=== PATIENT | male | born 2000 | race African-American/Black ===

== ENCOUNTER 2020-10-08 13:26 | Emergency (ER) | payer OTHER, SELFPAY ==
[2020-10-08 13:41] VITALS: BP 146/83; PULSE 66; RESP 16; TEMP 37.1; O2SAT 99
--- NOTE | 2020-10-08 14:16 | ED.SKABFB ---
HPI - Skin/Abscess/Foreign Bdy General Chief complaint: Skin/Abscess/Foreign Body Stated complaint: Problem with scrodum History of Present Illness HPI narrative: This is a 20-year-old male comes in complaining of right-sided scrotal itching and burning and erythema states that it started approximately 3 days ago he states that the only thing he uses is some stuff called [employer] Related Data Allergies Allergy/AdvReac Type Severity Reaction Status Date / Time No Known Allergies Allergy Verified 10/08/20 13:58 Review of Systems Review of Systems: CONSTITUTIONAL: Denies fever, chills, or sweats. EYES: Denies visual changes, redness, or discharge. ENT: Denies rhinorrhea, congestion, sore throat, or otalgia. CARDIOVASCULAR:Denies chest pain, palpitations, or edema. RESPIRATORY: Denies cough or dyspnea. GASTROINTESTINAL: Denies abdominal pain, nausea, vomiting, or diarrhea. Scrotal pain GENITOURINARY: Denies dysuria or hematuria. SKIN:[Denies rash or itching. MUSCULOSKELETAL:Denies back pain, joint pain, or myalgia. NEUROLOGIC: Denies headache, numbness, or weakness. PSYCHIATRIC:Denies anxiety or depression PMFSH Comments At time as signature, I have reviewed and agree with nursing past medical, social, surgical and family history. Please see nursing chart for further information. There is no relevant family history pertinent to the presenting complaint. Exam Narrative: GENERAL:Well-appearing, well-nourished, and in no acute distress. HEAD:Normocephalic, atraumatic. EYES: PERRLA and EOMI. ENT: Nares clear, no rhinorrhea or epistaxis. Mucous membranes moist. NECK: Supple. CHEST: Clear to auscultation. No respiratory distress. HEART: Regular rate and rhythm. No murmur heard. Normal peripheral pulses. ABDOMEN: Soft, nontender, nondistended, normal active bowel sounds. EXTREMITIES: Normal range of motion. No edema. SKIN: Warm, dry, no rash. Erythema to the right side of the scrotum painful to palpitation skin like abrasion NEURO: No focal deficits. Alert and oriented x3. Course Vital Signs Vital signs: Vital Signs Temperature 98.8 F 10/08/20 13:41 Pulse Rate 66 10/08/20 13:41 Respiratory Rate 16 10/08/20 13:41 Blood Pressure 146/83 H 10/08/20 13:41 Pulse Oximetry 99 10/08/20 13:41 Temperature 98.8 F 10/08/20 13:41 Pulse Rate 66 10/08/20 13:41 Respiratory Rate 16 10/08/20 13:41 Blood Pressure 146/83 H 10/08/20 13:41 Pulse Oximetry 99 10/08/20 13:41 MDM - Skin/Abscess/Foreign Bdy Differential Diagnosis Differential diagnosis: Likely abscess of skin or subcutaneous tissue, dermatophytosis, herpes zoster, allergic reaction to drug, cellulitis and other (STD symptom) Discharge Plan Discharge Clinical Impression: Pain in scrotum, Dermatitis Patient Disposition: Home, Self-Care Condition: Stable Instructions: Antibiotic Form, Dermatitis (ED), Scrotal Pain (ED) Additional Instructions: Use skin creams/lotion, such as those containing calamine or pramoxine to reduce itchiness Avoid scratching when possible to prevent worsening of the condition and disruption of the skin that could lead to bacterial infection To relieve itching, place a cool washcloth or some ice over the area that itches, rather than scratching Return to the office or seek ER visit if condition is not improving or worsens with fever, swelling, difficulty breathing or swallowing. Do not use any new creams and or lotions you have Scrotal dermatitis Prescriptions: New cetirizine [Zyrtec] 10 mg tablet 10 mg PO DAILY PRN (Reason: allergy symptoms) Qty: 30 RF: 0 hydrocortisone 1 % ointment 1 applic topical BID Qty: 28.35 RF: 0 Follow-up/Referrals: PHYSICIAN,CASHIER HOST/HOSTESS [Primary Care Provider] - Time of Disposition: 14:38
== END 2020-10-08 14:40 | disposition home or self-care (01) ==
PROVIDERS: Emergency Provider Nurse Practitioner Family
DX: L30.9 Dermatitis, unspecified (principal); N50.82 Scrotal pain
CPT/HCPCS: 99203; G0463

== ENCOUNTER 2020-11-13 19:45 | Emergency (ER) | payer OTHER, SELFPAY ==
[2020-11-13 19:53] VITALS: BP 144/67; PULSE 64; RESP 16; TEMP 36.5; O2SAT 100
--- NOTE | 2020-11-13 20:02 | ED.SKABFB ---
HPI - Skin/Abscess/Foreign Bdy General Chief complaint: Wound/Laceration Stated complaint: insect bite Time Seen by Provider: 11/13/20 20:02 Source: patient and RN notes reviewed Mode of arrival: ambulatory Limitations: no limitations History of Present Illness HPI narrative: 20-year-old male presents with concern for possible spider bite to the left forearm. Reports has been there for several days. He denies any drainage from the area. Denies body aches, chills, sweats. Denies streaking from the site. Denies seeing any spider or insect that bit him. Denies intervention. MD complaint: insect bite/sting Related Data Allergies Allergy/AdvReac Type Severity Reaction Status Date / Time No Known Allergies Allergy Verified 10/08/20 13:58 Review of Systems Review of Systems: CONSTITUTIONAL: Denies malaise, chills, sweats, or fever. ENT: Denies swollen lips, swollen CARDIOVASCULAR: Denies chest pain, palpitations, or edema. RESPIRATORY: Denies cough or dyspnea. GENITOURINARY: Denies dysuria or hematuria. SKIN: Reports insect bite to the left forearm MUSCULOSKELETAL: Denies myalgia. All systems reviewed & are unremarkable except as noted in HPI and below PMFSH Comments At time of signature, agree with nursing past medical, surgical, social and family history. There is no relevant family history pertinent to the presenting complaint Exam Narrative: GENERAL: Well-appearing, well-nourished, and in no acute distress. HEAD: Normocephalic, atraumatic. EYES: PERRLA, conjunctivae clear ENT: Mucous membranes moist. Oropharynx without edema, erythema or lesions. NECK: Supple. No lymphadenopathy CHEST: Clear to auscultation. No respiratory distress. HEART: Regular rate and rhythm. SKIN: Warm, dry. 2 cm firm nodule without fluctuation, warmth, surrounding erythema or edema noted to the left forearm NEURO: Alert and oriented x3. PSYCH: Normal mood and affect Course Course Emergency Course: Patient is aware of diagnosis, understands and agrees to treatment plan. Anticipatory guidance given. Patient agrees to follow-up as directed and is aware of reasons to seek care at the emergency department. Portions of this record may have been created with voice recognition software Vital Signs Vital signs: Vital Signs Temperature 97.7 F 11/13/20 19:53 Pulse Rate 64 11/13/20 19:53 Respiratory Rate 16 11/13/20 19:53 Blood Pressure 144/67 H 11/13/20 19:53 Pulse Oximetry 100 11/13/20 19:53 Temperature 97.7 F 11/13/20 19:53 Pulse Rate 64 11/13/20 19:53 Respiratory Rate 16 11/13/20 19:53 Blood Pressure 144/67 H 11/13/20 19:53 Pulse Oximetry 100 11/13/20 19:53 Reviewed. MDM - Skin/Abscess/Foreign Bdy MDM Narrative Medical decision making narrative: Exam findings show no acute concerns or changes; patient is non-toxic appearing and is in no distress. Patient is appropriate for outpatient treatment and follow-up. Differential Diagnosis Differential diagnosis: Likely abscess of skin or subcutaneous tissue, cellulitis, insect bites and contact dermatitis Critical Care Time Critical Care Time Critical Care Time: No Discharge Plan Discharge Clinical Impression: Insect bite Qualifiers: Encounter type: initial encounter Site of insect bite: forearm Laterality: left Qualified Code(s): S50.862A - Insect bite (nonvenomous) of left forearm, initial encounter Patient Disposition: Home, Self-Care Condition: Stable Instructions: Insect Bite or Sting (ED) Additional Instructions: Please follow up with your Primary Care Doctor If you have any other symptoms or concerns. Rest and elevate affected area; apply moist heat 3-4 times daily for 10-15 minutes. Take Motrin 600mg every 8 hours with food for pain. Please use cream as prescribed. If you experience any worsening redness, swelling, streaking (red lines), fever or chills please go to the ER Prescriptions: New triamcinolone acetonide 0.1 % cream
== END 2020-11-13 20:12 | disposition home or self-care (01) ==
PROVIDERS: Emergency Provider Nurse Practitioner
DX: S50.862A Insect bite (nonvenomous) of left forearm, initial encounter (principal); W57.XXXA Bitten or stung by nonvenomous insect and other nonvenomous arthropods, initial encounter
CPT/HCPCS: 99213; G0463

== ENCOUNTER 2020-12-31 17:37 | Emergency (ER) | payer OTHER, SELFPAY ==
[2020-12-31 17:47] VITALS: BP 143/74; PULSE 72; RESP 16; TEMP 37; O2SAT 99
--- NOTE | 2020-12-31 18:28 | ED_ITS ---
HPI - Male Genitourinary General Chief complaint: Urogenital-Male Stated complaint: Redness around penis History of Present Illness HPI Narrative: This is a 20-year-old comes in complaining of genital scrotal itching and irritation states is been going on for approximately 2 days patient denies using anything to help patient denies use of any new products, deodorants, lotions Related Data Allergies Allergy/AdvReac Type Severity Reaction Status Date / Time No Known Allergies Allergy Verified 12/31/20 18:05 Review of Systems Review of Systems: Scrotal itching All systems reviewed & are unremarkable except as noted in HPI and below PMFSH Comments At time as signature, I have reviewed and agree with nursing past medical, social, surgical and family history. Please see nursing chart for further information. There is no relevant family history pertinent to the presenting complaint. Exam Narrative: GENERAL:Well-appearing, well-nourished, and in no acute distress. HEAD:Normocephalic, EYES: PERRLA ENT: Nares clear, no rhinorrhea Mucous membranes moist. CHEST: Clear to auscultation. No respiratory distress. HEART: Regular rate and rhythm.. ABDOMEN: Soft, nontender, nondistended, normal active bowel sounds. EXTREMITIES: Normal range of motion. No edema. SKIN: Warm, dry, no rash. Scrotal erythema with fine rash NEURO: No focal deficits. Alert and oriented x3. Keena RN as sr. payroll processor while I examine patient's scrotum area Course Vital Signs Vital signs: Vital Signs Temperature 98.6 F 12/31/20 17:47 Pulse Rate 72 12/31/20 17:47 Respiratory Rate 16 12/31/20 17:47 Blood Pressure 143/74 H 12/31/20 17:47 Pulse Oximetry 99 12/31/20 17:47 Temperature 98.6 F 12/31/20 17:47 Pulse Rate 72 12/31/20 17:47 Respiratory Rate 16 12/31/20 17:47 Blood Pressure 143/74 H 12/31/20 17:47 Pulse Oximetry 99 12/31/20 17:47 MDM - Male Genitourinary Differential Diagnosis Differential diagnosis: Likely urinary tract infection, priapism, urethritis, epididymitis, genital herpes simplex, prostatitis, acute retention of urine and inguinal hernia Discharge Plan Discharge Clinical Impression: Atopic contact dermatitis, Pruritus of scrotum Patient Disposition: Home, Self-Care Condition: Stable Instructions: Antibiotic Form, Eczema (ED), Scrotal Pain (ED) Additional Instructions: Use skin creams/lotion, such as those containing calamine or pramoxine to reduce itchiness Avoid scratching when possible to prevent worsening of the condition and disruption of the skin that could lead to bacterial infection To relieve itching, place a cool washcloth or some ice over the area that itches, rather than scratching Return to the office or seek ER visit if condition is not improving or worsens with fever, swelling, difficulty breathing or swallowing. Prescriptions: New hydrocortisone 1 % cream 1 applic topical TID PRN (Reason: itching) Qty: 28.4 RF: 0 Follow-up/Referrals: PHYSICIAN,MANUFACTURING WORKER [Primary Care Provider] - Stand Alone Forms: Work/School Release IP Time of Disposition: 18:36
== END 2020-12-31 18:44 | disposition home or self-care (01) ==
PROVIDERS: Emergency Provider Nurse Practitioner Family
DX: L25.9 Unspecified contact dermatitis, unspecified cause (principal); L29.9 Pruritus, unspecified
CPT/HCPCS: 99213; G0463

== ENCOUNTER 2022-09-05 16:51 | Emergency (ER) | payer SELFPAY ==
[2022-09-05] VITALS (7 sets, daily range): BP systolic 131–159; BP diastolic 65–89; PULSE 51–85; RESP 14–23; TEMP 36.5; O2SAT 98–100
--- NOTE | ~2022-09-05 | XR_ITS ---
EXAMINATION: XR chest 2V DATE: 09/05/2022 17:45 INDICATION: Body stopped working. TECHNIQUE: Frontal and lateral views of the chest were obtained. COMPARISON: None. FINDINGS: The chest demonstrates clear lungs without pneumonia, pleural effusion, or pneumothorax. Th e heart size is normal. IMPRESSION: 1. No acute cardiopulmonary disease. Reviewed, dictated and finalized at location E.
--- NOTE | 2022-09-05 16:53 | ECG_ITS ---
Measurements Intervals [place] Rate: 52 P: 43 PA: 176 QRS: 67 QRSD: 90 T: 29 QT: 373 QTc: 348 Interpretive Statements SINUS BRADYCARDIA NONSPECIFIC ST ELEVATION IN DIFFUSE LEADS BASELINE ARTIFACT- I, II, AVR BORDERLINE ECG NO PREVIOUS ECG AVAILABLE FOR COMPARISON Electronically Signed On 09-05-2022 18:29:20 CDT by Santiago Navas D.O.
[2022-09-05] MEDS: Please add drug allergy info to patient profile. 1 EACH XX (19:49)
[2022-09-05 19:54] LABS: Basophils Absolute Auto 0.1 K/mm3 (0.0-0.1); Basophils Percent Auto 0.6 % (0.2-1.2); Eosinophils Absolute Auto 0.2 K/mm3 (0-0.3); Eosinophils Percent Auto 2.2 % (0-4.4); Hematocrit 41.3 % (42.0-52.0); Hemoglobin 12.8 g/dL (14.0-18.0); Immature Granulocyte Absolute 0.03 K/mm3 (0.00-0.031); Immature Granulocyte Percent A 0.3 % (0-0.5); Lymphocytes Absolute Auto 3.58 K/mm3 (0.9-3.2); Lymphocytes Percent Auto 36.2 % (18.3-44.2); Mean Corpuscular Hemoglobin 24.9 pg (26-34); Mean Corpuscular Volume 80.4 fl (80-100); Mean Platelet Volume 11.9 fl (7.4-10.4); Monocytes Absolute Auto 0.5 K/mm3 (0.1-0.6); Monocytes Percent Auto 5.2 % (2.6-8.5); Neutrophils Absolute Auto 5.5 K/mm3 (1.3-6.7); Neutrophils Percent Auto 55.5 % (45.5-73.1); Platelet Count Result 234 k/mm3 (150-375); Red Blood Count 5.14 M/mm3 (4.6-6.20); Red Cell Distribution Width 14.8 % (11.5-14.5); White Blood Count 9.9 K/mm3 (4.5-10.0)
[2022-09-05 20:04] LABS: Prothrombin Time 13.2 Seconds (11.1-14.7)
[2022-09-05 20:08] LABS: Alanine Aminotransferase 22 U/L (6-50); Albumin Level 4.4 g/dL (3.5-5.1); Alkaline Phosphatase 44 U/L (38-126); Anion Gap 8 mmol/L (8-16); Aspartate Amino Transferase 22 U/L (17-59); Bilirubin,Total 0.4 mg/dL (0.2-1.3); Blood Urea Nitrogen 14 mg/dL (9-20); Calcium 9.2 mg/dL (8.4-10.2); Carbon Dioxide 32 mmol/L (22-30); Chloride 101 mmol/L (98-107); Estimated CRCL calculation 103 ml/min; Estimated Glomerular Filt Rate > 60; Glucose 114 mg/dL (65-110); Lipase 55 U/L (23-300); Potassium 4.1 mmol/L (3.4-5.0); Sodium 141 mmol/L (137-145)
[2022-09-05 20:18] LABS: Troponin I < 0.012 ng/mL (0.000-0.034)
[2022-09-05 20:54] LABS: D Dimer 0.37 ug/mL (<0.48)
--- NOTE | 2022-09-05 21:28 | ED.CHESTPAIN ---
HPI - Chest Pain General Chief Complaint: Chest Pain Stated Complaint: chest pain Time Seen by Provider: 09/05/22 19:40 History of Present Illness HPI narrative: 22-year-old male with history of anxiety presents to the emergency department for evaluation of chest pain after having an episode of chest pain last night. Patient states while he was driving he had onset chest pain and some cramping in his hands. Patient states that he was anxious at this time. Patient reports that the episode lasted approximately 30 minutes. Patient states he has been having chest pain today but denies any associated shortness of breath. Patient has no prior cardiac history. Patient denies any significant past medical history. Patient denies any cocaine use but does admit to cannabis. Related Data Allergies Allergy/AdvReac Type Severity Reaction Status Date / Time No Known Allergies Allergy Verified 09/05/22 19:46 Review of Systems Review of Systems: All systems reviewed & are unremarkable except as noted in HPI and below Exam Narrative: APPEARANCE: Well appearing, no pain, no distress, well-nourished. HEAD: normocephalic, atraumatic. EYES: PERRLA/EOMI, conjunctivae clear. NOSE: Normal no drainage EARS:TMS clear with good light reflex. THROAT: Pharynx clear, no exudate. NECK: Supple. No adenopathy, no masses. RESPIRATORY: Airway patent, respirations nonlabored. Clear to auscultation bilaterally, no rales, rhonchi, wheezing. CARDIOVASCULAR: Regular rate and rhythm without murmurs rubs or gallops. ABDOMINAL: Soft, nontender, nondistended, normal bowel sounds MUSCULOSKELETAL: Moves all extremities. Strength/ROM intact, No edema, No calf tenderness. NEURO: Alert. Cranial nerves II through XII intact. Grossly intact SKIN: Warm, dry. Normal Color Course Course Emergency Course: 22-year-old male presented the ED for evaluation of chest pain after an episode of anxiety and hand cramping. Patient had an EKG that showed no evidence of acute ischemia, patient's chest x-ray showed no acute abnormality. EKG showed no evidence of acute ischemia. Patient had a negative dimer and no significant electrolyte abnormalities. Patient was updated on the results of her work-up and was encouraged of close follow-up with his primary care physician for additional cardiac work-up as needed. Patient was advised to refrain from cannabis use while having anxiety. Vital Signs Vital signs: Vital Signs Temperature 97.7 F 09/05/22 17:09 Pulse Rate 51 L 09/05/22 17:09 Respiratory Rate 18 09/05/22 17:09 Blood Pressure 131/71 09/05/22 17:09 Pulse Oximetry 100 09/05/22 17:09 Oxygen Delivery Room Air 09/05/22 17:09 Temperature 97.7 F 09/05/22 17:09 Pulse Rate 85 09/05/22 21:42 Respiratory Rate 22 H 09/05/22 20:31 Blood Pressure 154/89 H 09/05/22 21:42 Pulse Oximetry 98 09/05/22 21:42 Oxygen Delivery Room Air 09/05/22 17:09 MDM - Chest Pain Differential Diagnosis Differential diagnosis: Likely pneumothorax, unstable angina pectoris, atypical chest pain and chest pain Lab Data Attestation: I reviewed the patient's lab results. 09/05/22 19:43 09/05/22 19:43 Labs: Lab Results 09/05/22 09/05/22 Range/Units 19:43 19:46 WBC 9.9 (4.5-10.0) K/mm3 RBC 5.14 (4.6-6.20) M/mm3 Hgb 12.8 L (14.0-18.0) g/dL Hct 41.3 L (42.0-52.0) % MCV 80.4 (80-100) fl MCH 24.9 L (26-34) pg MCHC 31.0 L (32-36) g/dl RDW 14.8 H (11.5-14.5) % Plt Count 234 (150-375) k/mm3 MPV 11.9 H (7.4-10.4) fl Immature Gran % (Auto) 0.3 (0-0.5) % Neut % (Auto) 55.5 (45.5-73.1) % Lymph % (Auto) 36.2 (18.3-44.2) % [place] % (Auto) 5.2 (2.6-8.5) % Eos % (Auto) 2.2 (0-4.4) % Baso % (Auto) 0.6 (0.2-1.2) % Lymph # (Auto) 3.58 H (0.9-3.2) K/mm3 [place] # (Auto) 0.5 (0.1-0.6) K/mm3 Eos # (Auto) 0.2 (0-0.3) K/mm3 Baso # (Auto) 0.1 (0.0-0.1) K/mm3 Abs Immat Gran
== END 2022-09-05 21:43 | disposition home or self-care (01) ==
PROVIDERS: Emergency Provider Emergency Medicine
DX: R07.9 Chest pain, unspecified (principal); F41.9 Anxiety disorder, unspecified
CPT/HCPCS: 36415; 71046; 80053; 83690; 84484; 85025; 85380; 85610; 85730; 93005; 99284